=== PATIENT | female | born 1960 | race African-American/Black ===

== ENCOUNTER → 2017-06-17 | Outpatient (CLI) | payer OTHER, MEDICAID | END | disposition home or self-care (01) | LOC: NM 07:58 | DX: R06.09 Other forms of dyspnea (principal); I10 Essential (primary) hypertension; E66.9 Obesity, unspecified; Z87.891 Personal history of nicotine dependence | CPT/HCPCS: 78452; 93017; 93306; 96374; 96376; A9500 ==